=== PATIENT | male | born 1965 | race Two or more races ===

== ENCOUNTER → 2025-08-20 | Outpatient (CLI) | payer BC, SELFPAY ==
--- NOTE | 2025-08-20 13:30 | XR_ITS ---
Examination: Ultrasound soft tissue neck TECHNIQUE: Grayscale sonographic images soft tissue neck Date and time: August 20, 2025 1323 hours INDICATIONS: Bilateral knee pain beginning 6 years ago. FINDINGS: No cystic or solid masses in the neck IMPRESSION: Negative study
--- NOTE | 2025-08-20 14:00 | XR_ITS ---
Examination: Thyroid sonography complete TECHNIQUE: Grayscale sonographic images thyroid lobes Date and time: August 20, 2025 1315 hours INDICATIONS: Bilateral neck pain 6 years. FINDINGS: Right thyroid 4.1 cm No solid nodules Left thyroid 3.3 cm Midpole nodules 3 x 3 mm, 8 x 6 mm Midpole cyst 4 x 3 mm IMPRESSION: Small left thyroid nodules as above
== END | disposition home or self-care (01) ==
LOC: CDIM 12:12
PROVIDERS: PCP Student in an Organized Health Care Education/Training Program; Referring Provider Student in an Organized Health Care Education/Training Program; Visit Provider Student in an Organized Health Care Education/Training Program
DX: E04.2 Nontoxic multinodular goiter (principal); M25.562 Pain in left knee; M25.561 Pain in right knee
CPT/HCPCS: 76536

== ENCOUNTER → 2025-08-28 | Outpatient (CLI) | payer BC, SELFPAY ==
--- NOTE | 2025-08-28 | XR_ITS ---
Examination: Carotid arterial duplex scan, ultrasound. Date and time of exam: August 28, 2025, 1141 hours INDICATIONS: Dizziness episodes 7 years worse the last 2 years Technique: Multiple sonographic images have been obtained of the carotid arteries and vertebral arteries, B-mode/grayscale imaging and Doppler spectral analysis and color flow Peak systolic and diastolic velocities have been recorded. Systolic diastolic ratios have been calculated. Findings: Right peak systolic velocities: Distal internal carotid artery peak systolic velocity is 0.5 M/sec Proximal internal carotid artery peak systolic velocity is 0.9 M/sec Carotid bifurcation peak systolic velocity is 0.6 M/sec External carotid artery peak systolic velocity is 1.1 M/sec Vertebral artery flow is antegrade. Left peak systolic velocities: Distal internal carotid artery peak systolic velocity is 0.8 M/sec Proximal internal carotid artery peak systolic velocity is 0.5 M/sec Carotid bifurcation peak systolic velocity is 0.5 M/sec External carotid artery peak systolic velocity is 0.9 M/sec Vertebral artery flow is antegrade Doppler waveform analysis demonstrates no spectral broadening Impression: Right internal carotid artery demonstrates 0-10% stenosis. Left internal carotid artery demonstrates 0-10% stenosis.
== END | disposition home or self-care (01) ==
PROVIDERS: PCP Student in an Organized Health Care Education/Training Program; Referring Provider Student in an Organized Health Care Education/Training Program; Visit Provider Student in an Organized Health Care Education/Training Program
DX: R42 Dizziness and giddiness (principal)
CPT/HCPCS: 93880